=== PATIENT | male | born 1965 ===

== ENCOUNTER 2016-12-03 10:14 | Emergency (ER) | payer MEDICAID, OTHER ==
[2016-12-03 10:20] VITALS: BMI 28.3
[2016-12-03 10:21] VITALS: BP 144/77; PULSE 60; RESP 15; TEMP 98.6; O2SAT 100
--- NOTE | 2016-12-03 10:39 | C.PDOC ---
History Of Present Illness 50 yr old male presents to the ER with new onset of redness to the left thumb for the past several days. Patient states he woke up and thought he had a spider bite to the top middle of the thumb. Patient states he awoke with general redness to the top of thumb, squeezed it and clear liquid came out. Patient complains of persistent pain and redness to the area. Denies history of diabetes, fever, chills, nausea, vomiting, weakness or numbness. NEW ONSET REDNESS L THUMB X SEV DAYS. PS AWOKE, THOUGHT HE HAD A SPIDER BITE TOP MIDDLE OF THUMB. YEST AWOKE W GEN REDNESS TOP OF THUMB. SQUEEZED BUMP, STATES CLEAR LIQUID CAME OUT. CO PERSIST PAIN, REDNESS TO AREA. NO FEVER TRAUMA. DENIES HO DM. EXAM NONTOXIC SKIN +CELLULITIS DORSAL L THUMB FROM DIP TO JUST BEYOND MCP JOINT. AROM WO DIFF. PALMAR SURFACE SPARED. +PIMPLE LIKE LESION OVER PROX PHALANX. +INDURATION , NO PALP FLUCTUANCE. INTACT. NO LYMPHANGITIS EXT L THUMB MIN DORSAL SWELL. AROM W PAIN. ATRAUM MDM SKIN MARKED, WARM COMPRESS, ABX. PT VOICES UNDERSTANDING OF NEED TO RETURN IF WORSENING SYMPTOMS, IMPORTANCE OF ABX COMPLETION Time Seen by Provider: 12/03/16 10:24 Chief Complaint (Nursing): Abnormal Skin Integrity History Per: Patient History/Exam Limitations: no limitations Onset/Duration Of Symptoms: Days (Several days ) Past Medical History Reviewed: Historical Data, Nursing Documentation, Vital Signs Vital Signs: Last Vital Signs Temp 98.6 F 12/03/16 10:20 Pulse 60 12/03/16 10:20 Resp 15 12/03/16 10:20 BP 144/77 12/03/16 10:20 Pulse Ox 100 12/03/16 10:40 Family History: States: No Known Family Hx Review Of Systems Except As Marked, All Systems Reviewed And Found Negative. Constitutional: Negative for: Fever, Chills Gastrointestinal: Negative for: Nausea, Vomiting Skin: Positive for: Other (Left Thumb - Redness to the top of thumb ) Neurological: Negative for: Weakness, Numbness Physical Exam - Physical Exam Appears: Well, Non-toxic, No Acute Distress Skin: Warm, Dry, No Rash, Other ((+) Cellulitis to the dorsal left thumb from DIP to just beyond MCP joint. AROM without difficulty. Palmar surface spared. Pimple like lesion over the proximal phalanx. +Induration. No palpable fluctuance. No lymphangitis. ) Head: Atraumatic, Normacephalic Chest: Symmetrical, No Tenderness Cardiovascular: Rhythm Regular, No Murmur Respiratory: Normal Breath Sounds, No Rales, No Rhonchi, No Stridor, No Wheezing Extremity: Capillary Refill (<2), No Deformity, Swelling (Left Thumb - Minimal swelling to the dorsal aspect. AROM with pain. ) Neurological/Psych: Oriented x3, Normal Speech, Normal Motor, Normal Sensation ED Course And Treatment O2 Sat by Pulse Oximetry: 100 Medical Decision Making Medical Decision Making: PLAN: * Keflex PO * Motrin PO * Tylneol PO NOTE: Skin is marked. Patient is advised to use warm compresses and antibiotic use. Patient voices understanding of need to return if worsening symptoms. Stress the importance of completing antibiotic course. Disposition Counseled Patient/Family Regarding: Diagnosis, Need For Followup, Rx Given - Disposition Referrals: [facility] [Outside] [facility] [Outside] Disposition: HOME/ ROUTINE Disposition Time: 10:39 Condition: GOOD Instructions: Cellulitis (ED) - Clinical Impression Clinical Impression: Cellulitis - Scribe Statement The provider has reviewed the documentation as recorded by the Sera Jeff Provider Attestation: All medical record entries made by the Sera were at my direction and personally dictated by me. I have reviewed the chart and agree that the record accurately reflects my personal performance of the history, physical exam, medical decision making, and the department course for this patient. I have also personally directed, reviewed, and agree with the discharge instructions and disposition.
== END 2016-12-03 11:18 | disposition home or self-care (01) ==
LOC: C.ER 10:14 → SUPCPDRO 10:14 → C.ER 11:18
DX: L03.012 Cellulitis of left finger (principal)

== ENCOUNTER 2016-12-05 14:52 | Emergency (ER) | payer MEDICAID, OTHER ==
[2016-12-05 14:53] VITALS: BMI 28.3
--- NOTE | 2016-12-05 15:42 | C.PDOC ---
History Of Present Illness Patient is a 50 y/o male that presents to the ED for evaluation of left hand swelling and redness. Patient reports being seen here few days ago for a " spider bite", and was discharged home with prescription of antibiotics. Pt reports taking the prescribed antibiotics without any improvement. Otherwise, denies any fever, chills, numbness/weakness, or any other associated symptoms at this time. Time Seen by Provider: 12/05/16 15:28 Chief Complaint (Nursing): Abnormal Skin Integrity History Per: Patient History/Exam Limitations: no limitations Onset/Duration Of Symptoms: Days Current Symptoms Are (Timing): Still Present Location Of Injury: Left: Hand Quality Of Symptoms: Swollen Recent travel outside of the [place]: No Additional History Per: Patient Past Medical History Reviewed: Historical Data, Nursing Documentation, Vital Signs Vital Signs: Last Vital Signs Temp 98.2 F 12/05/16 18:26 Pulse 75 12/05/16 18:26 Resp 16 12/05/16 18:26 BP 122/70 12/05/16 18:26 Pulse Ox 100 12/05/16 18:26 - Medical History PMH: Gastritis Family History: States: No Known Family Hx - Social History Hx Alcohol Use: No Hx Substance Use: No - Immunization History Hx Tetanus Toxoid Vaccination: No Hx Influenza Vaccination: No Hx Pneumococcal Vaccination: No Review Of Systems Except As Marked, All Systems Reviewed And Found Negative. Constitutional: Negative for: Fever, Chills Musculoskeletal: Negative for: Hand Pain Skin: Positive for: Other (left hand swelling and redness) Neurological: Negative for: Weakness, Numbness Physical Exam - Physical Exam Appears: Non-toxic, No Acute Distress Skin: Warm, Dry, Other (swelling, erythema, and warmth extending from left thumb to proximal and ulnar aspect of left hand) Head: Atraumatic, Normacephalic Eye(s): bilateral: Normal Inspection, EOMI Cardiovascular: Rhythm Regular, No Murmur Respiratory: Normal Breath Sounds, No Rales, No Rhonchi, No Wheezing Extremity: Normal ROM, No Tenderness, Capillary Refill (< 2 sec.), No Deformity Pulses: Left Radial: Normal, Right Radial: Normal Neurological/Psych: Oriented x3, Normal Speech, Normal Cognition, Normal Motor, Normal Sensation ED Course And Treatment - Laboratory Results Result Diagrams: 12/05/16 16:10 12/05/16 16:10 O2 Sat by Pulse Oximetry: 98 (on RA) Pulse Ox Interpretation: Normal Progress Note: Labs ordered and reviewed. Patient was treated with Rocephin, and Vancomycin in the ER. Medical Decision Making Medical Decision Making: worsening cellulits. will check labs and dose antibiotics. bedside us shows minimal collection, drained with 16 g need, with small amount of purlent d/c. wound culture sent. will broaden coverage to include MRSA. 500: pt reassesed. labs unremarkable. as pt with worsening hand cellulitis. pt will need iv antiboiotics, and failure of outpt course. requested pt to be admitted. states he "needs to go home" as he reports "he will lose his housing" . pt understands risk of not staying in hospital. requested pt to add bactrim to current antibiotic regimen. discussed at length about potential risks of leaving AMA. pt verbalized understanding This patient is choosing to leave against medical advice. I have personally explained to the patient that choosing to do so may result in permanent bodily harm or . I have discussed at great length that without further evaluation and monitoring there may be unforeseen circumstances and/or deterioration causing permanent bodily harm or as a result of their choice. The patient is alert, oriented, and shows the mental capacity to make clear decisions regarding the patients health care at this time. The patient continues to wish to leave against medical advice. In light of the patients decision to leave AMA, follow-up has been arranged and the patient is aware of the importance of following up as instructed. The patient has been advised that they should return to the ED immediately if they change their mind at any time, or if their condition begins to change or worsen in any way. Disposition - Disposition Referrals: [facility] [Outside] [facility] [Outside] [facility] [Outside] Francisco Javier Craven MD [Provisional Staff] - Remedios Trevizo MD [Staff Provider] - Disposition: AGAINST MEDICAL ADVICE Disposition Time: 04:00 Condition: UNKNOWN Additional Instructions: you are leaving against medical advise. you are able to return to er with worsening symptoms or concerns. you should follow up with specialist and clinic. Prescriptions: Sulfamethoxazole/Trimethoprim [Bactrim DS 800 mg-160 mg] 1 tab PO BID #20 tab Instructions: Cellulitis (ED), Against Medical Advice (ED) - Clinical Impression Clinical Impression: Cellulitis of hand, Abscess of thumb, Left against medical advice - Scribe Statement The provider has reviewed the documentation as recorded by the Sera Scott Provider Attestation: All medical record entries made by the Laliibcamila were at my direction and personally dictated by me. I have reviewed the chart and agree that the record accurately reflects my personal performance of the history, physical exam, medical decision making, and the department course for this patient. I have also personally directed, reviewed, and agree with the discharge instructions and disposition. Incision and Drainage - Time Time Performed: 04:00 - Time Out Time Out: Side verified - Consent obtained Consent obtained: Verbal - Performed by Performed by: Attending Physician - Indications Indications: Cutaneous abscess - Contraindications Contraindications: None - Location Location: Left (left hand) - Procedure Procedure: Ultrasound guidance util. - Drained Drained: ml pus (1)
[2016-12-05] MEDS ORDERED: cefTRIAXone IV 1 gm in Dextros 50 ML IVPB ONE (15:44)
[2016-12-05 16:15] LABS: BASO # 0.1 K/uL (0.0-0.2); BASO % 0.7 % (0.0-2.0); EOS # 0.1 K/uL (0.0-0.7); EOS % 0.8 % (0.0-4.0); HEMATOCRIT 41.4 % (35.0-51.0); LYMPH # 1.7 K/uL (1.0-4.3); LYMPH % 20.6 % (20.0-40.0); MEAN CELL VOLUME 78.1 fL (80.0-94.0); MEAN CORPUSCULAR HEMOGLOBIN 25.4 pg (27.0-31.0); MEAN CORPUSCULAR HGB CONC 32.5 g/dL (33.0-37.0); MEAN PLATELET VOLUME 8.6 fL (7.2-11.7); MONO # 0.6 K/uL (0.0-0.8); MONO % 7.2 % (0.0-10.0); RED CELL DISTRIBUTION WIDTH 14.1 % (11.5-14.5); WHITE BLOOD COUNT 8.1 K/uL (4.8-10.8)
[2016-12-05 16:21] LABS: INR 1.1
[2016-12-05 16:32] LABS: CHLORIDE 100 mmol/L (98-107); POTASSIUM 4.5 mmol/L (3.6-5.2); SODIUM 137 mmol/L (132-148)
[2016-12-05 16:34] LABS: GFR AFRICAN-AMERICAN > 60
[2016-12-05 16:35] LABS: ALB/GLOB RATIO 1.4 (1.0-2.1); ALKALINE PHOSPHATASE 61 U/L (38-126); ALT/SGPT 17 U/L (21-72); AST/SGOT 17 U/L (17-59); BILIRUBIN,TOTAL 0.7 mg/dL (0.2-1.3); BLOOD UREA NITROGEN 16 mg/dL (9-20); CARBON DIOXIDE 27 mmol/L (22-30); GLUCOSE,RANDOM 84 mg/dL (75-110)
[2016-12-05 16:36] LABS: CALCIUM 8.8 mg/dl (8.6-10.4)
[2016-12-05 18:27] VITALS: BP 122/70; PULSE 75; RESP 16; TEMP 98.2
[2016-12-06 09:26] VITALS: O2SAT 98
--- NOTE | 2016-12-08 07:59 | CARD ---
APPROVED REPORT EKG Measurement Heart [id number] CT [id number] <Conclusion> Normal sinus rhythm Normal ECG
== END 2016-12-05 18:25 | disposition left against medical advice (07) ==
LOC: C.ER 14:52
DX: L03.114 Cellulitis of left upper limb (principal); L02.512 Cutaneous abscess of left hand
CPT/HCPCS: 10060; 80053; 85025; 85610; 85730; 87040; 87070; 87181; 93005; 96365; 99284; J0696; J7050